=== PATIENT | female | born 1980 | race Caucasian/White ===

== ENCOUNTER 2018-02-09 00:02 | Emergency (ER) | payer BC, OTHER ==
[~2018-02-09] VITALS: Ht 165.1 cm; Wt 76.0 kg
[~2018-02-09 00:02] MED LIST: ALBU8.5H8 INH; IBUP-1221 PO; NONE PER PT; PRENATAL PO
[2018-02-09] MEDS ORDERED: APAP/CODEINE 300/30MG TABLET PO PRN (02:30)
[2018-02-09] MEDS ORDERED: ACETAMINOPHEN 500 MG TABLET ONE (02:52)
[2018-02-09 03:12] VITALS: BP 116/84
== END 2018-02-09 03:14 | disposition home or self-care (01) ==
LOC: ED 03:02
DX: J20.9 Acute bronchitis, unspecified (principal)
CPT/HCPCS: 99283